=== PATIENT | female | born 1960 | race Caucasian/White ===

== ENCOUNTER 2016-06-26 21:05 | Emergency (ER) | payer MEDICARE, MEDICAID ==
[~2016-06-26] VITALS: Ht 160 cm; Wt 106.6 kg
[2016-06-26 21:55] LABS: Urine Bilirubin Negative (Negative); Urine Color Yellow (Yellow); Urine Glucose Normal (Normal); Urine Hyaline Cast FEW /lpf (0 - 2); Urine Ketone Negative (Negative); Urine Nitrite Negative (Negative); Urine RBC 15 /hpf (0 - 4); Urine Squamous Epithelial Cell FEW /hpf (<5); Urine Urobilinogen Normal (Negative); Urine WBC Clumps PRESENT /hpf (None Seen)
[2016-06-26 21:57] LABS: Basophils # (auto) 0.1 uL; Basophils % (auto) 0.8 % (0.0-2.0); Eosinophils # (auto) 0.1 uL; Eosinophils % (auto) 0.6 % (0.0-7.0); Hematocrit 40.5 % (36.0-46.0); Hemoglobin 13.6 g/dL (12.2-16.2); Lymphocytes % (auto) 7.3 % (10.0-50.0); Mean Corpuscular Hemoglobin 29.4 pg (28.0-32.0); Mean Corpuscular Hgb Conc. 33.7 g/dL (32.0-36.0); Mean Corpuscular Volume 87.3 fL (80.0-100.0); Mean Platelet Volume 6.6 fL (7.4-10.4); Monocytes # (auto) 0.8 uL; Monocytes % (auto) 5.6 % (0.0-12.0); Neutrophils # (auto) 11.5 uL; Neutrophils % (auto) 85.7 % (37.0-80.0); Platelet Count (auto) 469 10^3/uL (140-450); Red Cell Distribution Width 14.9 % (11.6-16.0); White Blood Cell 13.4 10^3/uL (4.4-10.8)
[2016-06-26 22:14] LABS: Albumin 2.6 g/dL (3.4-5.0); Bilirubin, Total 0.5 mg/dL (0.2-1.0); Potassium 3.7 mmol/L (3.5-5.1); Total Protein 7.6 g/dL (6.4-8.2)
[2016-06-26 22:17] LABS: Urine Blood 1+ /uL (Negative)
[2016-06-27] MEDS ORDERED: MORPHINE SULF INJ 2 MG/ML SYRINGE 1ML IV ONE
[2016-06-27] MEDS ORDERED: ONDANSETRON HCL 4 MG/2 ML VIAL IV ONE ×2 (01:45)
[2016-06-27] MEDS ORDERED: HYDROmorphone HCL 2 MG/ML VL IV ONE (01:45)
[2016-06-27 05:11] VITALS: BP 115/73
== END 2016-06-27 05:10 | disposition home or self-care (01) ==
LOC: ER 21:10
DX: N13.2 Hydronephrosis with renal and ureteral calculous obstruction (principal); N39.0 Urinary tract infection, site not specified; Z88.8 Allergy status to other drugs, medicaments and biological substances; Z88.1 Allergy status to other antibiotic agents
CPT/HCPCS: 36415; 74176; 80053; 81001; 85025; 96374; 96375; 96376; 99285; J1170; J2270; J2405

== ENCOUNTER 2016-07-02 06:07 | Observation (INO) | payer MEDICARE, MEDICAID ==
[~2016-07-02] VITALS: Ht 160 cm; Wt 110.2 kg
[2016-07-02 08:12] LABS: Albumin 2.7 g/dL (3.4-5.0); BUN/Creatinine Ratio 9.9; Basophils # (auto) 0.1 uL; Basophils % (auto) 0.5 % (0.0-2.0); Eosinophils # (auto) 0.2 uL; Eosinophils % (auto) 1.5 % (0.0-7.0); Hematocrit 39.3 % (36.0-46.0); Hemoglobin 13.1 g/dL (12.2-16.2); Lymphocytes # (auto) 1.1 uL; Mean Corpuscular Hgb Conc. 33.3 g/dL (32.0-36.0); Mean Corpuscular Volume 87.3 fL (80.0-100.0); Monocytes # (auto) 0.4 uL; Monocytes % (auto) 3.5 % (0.0-12.0); Neutrophils # (auto) 10.1 uL; Neutrophils % (auto) 85.5 % (37.0-80.0); Platelet Count (auto) 701 10^3/uL (140-450); Potassium 4.6 mmol/L (3.5-5.1); Red Cell Distribution Width 14.7 % (11.6-16.0); White Blood Cell 11.9 10^3/uL (4.4-10.8)
[2016-07-02 08:13] LABS: Urine Bilirubin Negative (Negative); Urine Blood TRACE /uL (Negative); Urine Color Yellow (Yellow); Urine Glucose Normal (Normal); Urine Ketone Negative (Negative); Urine Mucus FEW (None Seen); Urine Nitrite Negative (Negative); Urine RBC 10 /hpf (0 - 4); Urine Squamous Epithelial Cell FEW /hpf (<5); Urine Urobilinogen Normal (Negative); Urine pH 6.5 (5.0-8.0)
[2016-07-02] MEDS ORDERED: SODIUM CHLORIDE 0.9% 1,000 ML IV ONE (08:16)
[2016-07-02 08:21] LABS: Bilirubin, Total 0.5 mg/dL (0.2-1.0); Total Protein 7.6 g/dL (6.4-8.2)
[2016-07-02 10:20] VITALS: BP 107/76
== END 2016-07-02 10:31 | disposition home or self-care (01) | DRG 694 ==
LOC: ER 06:09 → OVERFLOW 08:17 → ER 10:31
PROVIDERS: ADMIT Emergency Medicine; ATTEND Emergency Medicine
DX: N13.2 Hydronephrosis with renal and ureteral calculous obstruction (principal); E44.0 Moderate protein-calorie malnutrition; N39.0 Urinary tract infection, site not specified; I10 Essential (primary) hypertension
CPT/HCPCS: 36415; 76775; 80053; 81001; 81025; 83735; 85025; 96360; 96361; 99285; G0378; J7030